=== PATIENT | female | born 1985 | race Caucasian/White ===

== ENCOUNTER 2020-04-21 06:40 | Inpatient (IN) | payer OTHER ==
[2020-04-21] MEDS: ELECTROLYTE-148 SOLN 1,000 ML IV SCH ×2 (07:45→14:30)
[2020-04-21] MEDS ORDERED: ELECTROLYTE-148 SOLN 1,000 ML IV SCH (08:00)
[2020-04-21 09:15] LABS: BASO % 0.4 % (0-2.0); EOS % 1.3 % (0-4.5); HEMATOCRIT 33.7 % (32.4-45.2); HEMOGLOBIN 11.6 GM/dL (10.7-15.3); INR 0.89 (0.83-1.09); LYMPH % 18.1 % (8-40); MCH 32.4 pg (25.7-33.7); MCHC 34.3 g/dl (32.0-36.0); MEAN CELL VOLUME 94.5 fl (80-96); MEAN PLT VOLUME 11.4 fl (7.5-11.1); MONO % 6.5 % (3.8-10.2); NEUT % 73.7 % (42.8-82.8); PLATELET COUNT 167 K/MM3 (134-434); RBC 3.57 M/mm3 (3.60-5.2); RDW 13.4 % (11.6-15.6)
[2020-04-21 09:18] LABS: ACTIVATED PTT 27.1 SECONDS (25.2-36.5)
[2020-04-21 09:39] LABS: POTASSIUM 3.7 mmol/L (3.5-5.1)
[2020-04-21 09:41] LABS: CALCIUM 8.7 mg/dL (8.5-10.1)
[2020-04-21 09:42] LABS: BLOOD UREA NITROGEN 12.9 mg/dL (7-18)
[2020-04-21 09:45] LABS: CREATININE 0.6 mg/dL (0.55-1.3)
[2020-04-21] MEDS ORDERED: OXYTOCIN 30 UNITS in 0.9% NS 30 UNIT/500 ML INFUS.BAG IVPB ONE (09:46)
[2020-04-21] MEDS ORDERED: OXYTOCIN 30 UNITS in 0.9% NS 30 UNIT/500 ML INFUS.BAG IVPB SCH (10:00)
[2020-04-21] MEDS ORDERED: PCA PUMP NR ONE ×2 (13:09→21:18)
[2020-04-21] MEDS ORDERED: FENTANYL/BUPIVACAINE/NS/PF - PCEA - 50 ML DISP.SYRIN EP ONE ×3 (13:09→21:18)
[2020-04-21] MEDS ORDERED: BUPIVACAINE HCL/PF 0.25% (2.5MG/ML) 10 ML VIAL ONE ×4 (13:10→22:29)
[2020-04-21] MEDS ORDERED: ONDANSETRON 4 MG/2 ML VIAL ONE (14:41)
[2020-04-21] MEDS ORDERED: PHENYLEPHRINE HCL 10 MG/1 ML SINGLE DOSE VIAL ONE (14:41)
[2020-04-21] MEDS ORDERED: ePHEDrine SULFATE 50 MG/1 ML AMPULE ONE ×2 (14:41→17:34)
[2020-04-21] MEDS ORDERED: LIDOCAINE HCL/PF 2% SDV 5ML VIAL ONE (21:28)
[2020-04-22] MEDS ORDERED: FENTANYL/BUPIVACAINE/NS/PF - PCEA - 50 ML DISP.SYRIN EP ONE (00:52)
[2020-04-22] MEDS ORDERED: LIDOCAINE HCL 1% PRESERVATIVE FREE - 30ML VIAL ONE ×2 (01:16→01:30)
[2020-04-22] MEDS ORDERED: OXYTOCIN 20 UNITS in 0.9% NS 20 UNIT/1,000 ML INFUS.BAG IV ONE ×2 (01:17→01:30)
[2020-04-22] MEDS ORDERED: BENZOCAINE 20% 57 GM BOTTLE TP PRN (02:41)
[2020-04-22] MEDS ORDERED: WITCH HAZEL 50% (TUCKS) 40 PAD/JAR PAD TP PRN (02:41)
[2020-04-22] MEDS ORDERED: BISACODYL 10 MG SUPP.RECT RC PRN (02:41)
[2020-04-22] MEDS ORDERED: BENZOCAINE 28 GM HEMORRHOIDAL OINTMENT TP PRN (02:41)
[2020-04-22] MEDS ORDERED: METHYLERGONOVINE MALEATE 0.2 MG/1 ML AMP IM PRN (02:41)
[2020-04-22] MEDS ORDERED: OXYTOCIN 20 UNITS in 0.9% NS 20 UNIT/1,000 ML INFUS.BAG IV SCH (02:45)
[2020-04-22] MEDS ORDERED: ACETAMINOPHEN 325 MG TABLET (FP) ONE (03:05)
[2020-04-22] MEDS ORDERED: IBUPROFEN 600 MG TABLET (FP) PO ONE (03:05)
[2020-04-22] MEDS: IBUPROFEN 600 MG TABLET (FP) PO PRN ×4 (04:37→19:49)
[2020-04-22] MEDS: ACETAMINOPHEN 325 MG TABLET (FP) PO PRN ×4 (04:38→19:50)
[2020-04-23] MEDS: IBUPROFEN 600 MG TABLET (FP) PO PRN ×5 (00:36→21:40)
[2020-04-23] MEDS: ACETAMINOPHEN 325 MG TABLET (FP) PO PRN ×5 (00:36→21:40)
[2020-04-23 12:31] LABS: BASO % 0.3 % (0-2.0); HEMATOCRIT 33.5 % (32.4-45.2); HEMOGLOBIN 11.1 GM/dL (10.7-15.3); LYMPH % 15.9 % (8-40); MCHC 33.3 g/dl (32.0-36.0); MEAN CELL VOLUME 96.1 fl (80-96); MEAN PLT VOLUME 11.1 fl (7.5-11.1); MONO % 6.4 % (3.8-10.2); NEUT % 76.4 % (42.8-82.8); PLATELET COUNT 177 K/MM3 (134-434); RBC 3.49 M/mm3 (3.60-5.2); RDW 13.5 % (11.6-15.6); WHITE BLOOD COUNT 13.4 K/mm3 (4.0-10.0)
[2020-04-23] MEDS ORDERED: SENNOSIDES/DOCUSATE COMBO (SENNA PLUS) TABLET (UD) PO PRN (22:00)
[2020-04-24] MEDS: ACETAMINOPHEN 325 MG TABLET (FP) PO PRN ×2 (02:56→09:37)
[2020-04-24] MEDS: IBUPROFEN 600 MG TABLET (FP) PO PRN ×2 (02:56→09:36)
[2020-04-24 09:01] VITALS: BP 102/71; PULSE 61; TEMP 97.3
== END 2020-04-24 13:00 | disposition home or self-care (01) | DRG 560 ==
LOC: JLDR 06:40 → J3W 04-22 04:07
PROVIDERS: ADMIT Specialist; ATTEND Specialist
PROC: 3E033VJ Introduction of Other Hormone into Peripheral Vein, Percutaneous Approach (ICD-10-PCS; 2020-04-21)
PROC: 10E0XZZ Delivery of Products of Conception, External Approach (ICD-10-PCS; principal; 2020-04-22)
PROC: 0W8NXZZ Division of Female Perineum, External Approach (ICD-10-PCS; 2020-04-22)
DX: O36.63X0 Maternal care for excessive fetal growth, third trimester, not applicable or unspecified (principal); O66.0 Obstructed labor due to shoulder dystocia; O26.899 Other specified pregnancy related conditions, unspecified trimester; R10.9 Unspecified abdominal pain; Z3A.38 38 weeks gestation of pregnancy; Z37.0 Single live birth
CPT/HCPCS: 36415; 59409; 80048; 85025; 85610; 85730; 86780; 86850; 86900; 86901